=== PATIENT | female | born 1990 | race American Indian/Alaskan Native ===

== ENCOUNTER 2022-04-27 08:15 | Emergency (ER) | payer MEDICAID ==
[~2022-04-27] VITALS: Ht 154.9 cm; Wt 68.0 kg
[2022-04-27 10:54] VITALS: BP 111/75
[2022-04-27] MEDS ORDERED: IBUP800T27 PO (11:48)
== END 2022-04-27 12:33 | disposition home or self-care (01) ==
LOC: ER 08:15
DX: S82.831A Other fracture of upper and lower end of right fibula, initial encounter for closed fracture (principal); S90.31XA Contusion of right foot, initial encounter; W18.39XA Other fall on same level, initial encounter; Y93.89 Activity, other specified; Y92.89 Other specified places as the place of occurrence of the external cause; Y99.8 Other external cause status
CPT/HCPCS: 29515; 73610; 73630

== ENCOUNTER 2022-05-10 12:01 | Emergency (ER) | payer MEDICAID ==
[~2022-05-10] VITALS: Ht 154.9 cm; Wt 72.6 kg
[~2022-05-10 12:01] MED LIST: IBUP800T27 PO
[2022-05-10] MEDS ORDERED: IBUP800T27 PO (17:24)
[2022-05-10 17:47] VITALS: BP 125/72
== END 2022-05-10 18:03 | disposition home or self-care (01) ==
LOC: ER 12:01
DX: S82.831D Other fracture of upper and lower end of right fibula, subsequent encounter for closed fracture with routine healing (principal); Z79.1 Long term (current) use of non-steroidal anti-inflammatories (NSAID); W18.39XD Other fall on same level, subsequent encounter
CPT/HCPCS: 29515; 73590; 73610